=== PATIENT | female | born 1975 | race Caucasian/White ===

== ENCOUNTER 2020-01-12 13:20 | Outpatient (CLI) | payer OTHER ==
--- NOTE | 2020-01-14 09:47 | Mammography Report ---
Reason: ROUTINE MAMMO Procedure Date: 01/12/2020 Accession Number: [id number] / [id number] Procedure: MGN - Screening Mammo w/Vinay CPT Code: Final Report FULL RESULT: EXAM: Screening Mammo w/Vinay DATE: 01/12/2020 1:52 PM CLINICAL HISTORY: Screening encounter. Family history of breast cancer in the mother at the age of 48. TECHNIQUE: (B) - Bilateral CC, laterally exaggerated CC, MLO views were obtained. COMPARISON: 09/22/2018 through 08/25/2015. PARENCHYMAL PATTERN: (D) - The breast(s) demonstrate(s) heterogeneously dense fibroglandular parenchyma. FINDINGS: In the left central breast 4 cm from the nipple on MLO projection is an increasing asymmetry with suggestion of architectural distortion best seen on image 44; is unclear with subtle calcifications are present. The finding is not clearly localized on CC projection with candidate tomographic foci on image 26 at 11:00 and image 29 at 11:00. This requires additional clarification by spot views with magnification and potentially ultrasound. There are no suspicious masses, calcifications, or areas of distortion of the right breast. IMPRESSION: Incomplete examination. BI-RADS category 0. RECOMMENDATION: (ADDMU) - Additional views using both Mammography and Ultrasound recommended. Left breast. BI-RADS CATEGORY: (0) - Incomplete Examination - need additional evaluation. STANDARD QUALIFYING STATEMENTS: 1. This examination was not reviewed with the aid of Computer-Aided Detection (CAD). 2. A negative or benign imaging report should not preclude biopsy if clinically suspicious findings are present. 3. Dense breasts may obscure an underlying neoplasm. 4. This examination was reviewed with the aid of 3D breast imaging (tomosynthesis).
== END 2020-01-12 13:21 | disposition home or self-care (01) ==
LOC: DI.N 13:20
DX: Z12.31 Encounter for screening mammogram for malignant neoplasm of breast (principal); Z80.3 Family history of malignant neoplasm of breast
CPT/HCPCS: 77063; 77067

== ENCOUNTER 2021-01-29 09:34 | Emergency (ER) | payer OTHER ==
[2021-01-29 10:25] LABS: BASOPHILS % (AUTO) 0.6 %; EOSINOPHILS # (AUTO) 0.1 10^3/uL (0.0-0.7); EOSINOPHILS % (AUTO) 0.9 %; HCT - HEMATOCRIT 34.8 % (37.0-47.0); HGB - HEMOGLOBIN 10.4 g/dL (12.0-16.0); LYMPHOCYTES # (AUTO) 2.6 10^3/uL (1.5-3.5); LYMPHOCYTES % (AUTO) 39.3 %; MEAN CORPUSCULAR HEMOGLOBIN 19.1 pg (27.0-31.0); MEAN CORPUSCULAR HGB CONC 29.9 g/dL (32.0-36.0); MEAN PLATELET VOLUME 9.6 fL (7.9-10.8); MONOCYTES # (AUTO) 0.7 10^3/uL (0.0-1.0); MONOCYTES % (AUTO) 10.7 %; NEUTROPHILS # (AUTO) 3.1 10^3/uL (1.5-6.6); NEUTROPHILS % (AUTO) 48.2 %; NRBC ABSOLUTE COUNT (AUTO) 0.02 x10^3/uL; NUCLEATED RED BLOOD CELLS AUTO 0.3 /100WBC; PLT - PLATELET COUNT 388 10^3/uL (130-450); RED BLOOD COUNT 5.44 10^6/uL (4.20-5.40); SLIDE REVIEW? Indicated; WHITE BLOOD COUNT 6.5 x10^3/uL (4.8-10.8)
[2021-01-29 10:37] LABS: ALBUMIN 4.2 g/dL (3.2-5.5); ALBUMIN/GLOBULIN RATIO 1.4 (1.0-2.2); BILIRUBIN,TOTAL 0.7 mg/dL (0.2-1.0); CALCIUM 9.2 mg/dL (8.5-10.3); CREATININE 0.7 mg/dL (0.4-1.0); POTASSIUM 3.7 mmol/L (3.5-5.0); TOTAL PROTEIN 7.1 g/dL (6.7-8.2)
[2021-01-29 10:43] LABS: PLATELET ESTIMATE, MANUAL NORMAL (130-450,000) (NORMAL); PLATELET MORPHOLOGY NORMAL APPEARANCE (NORMAL)
--- NOTE | 2021-01-29 11:06 | ED Physician Documentation ---
PD HPI OPHTHO - Stated complaint Stated Complaint: LT EYE PX - Chief complaint Chief Complaint: Heent - History obtained from History obtained from: Patient - History of Present Illness Timing - onset: Today Timing - duration: Minutes Timing - details: Abrupt onset, Now resolved Location: Left Quality / character: Other (No pain) Associated symptoms: Loss of vision. No: Redness, Swelling, Tearing, Discharge, Matting, FB sensation, Photophobia, Double vision, Decreased vision, Headache Contributing factors: No: Exposed to conjunctivitis, Recent URI Similar symptoms before: Has not had sx before Recently seen: Not recently seen - Additional information Additional information: 45-year-old female with a history of migraines who is on suppression with propr anolol has developed loss of vision in the left eye today without pain and she subsequently had a reina out of the vision and it has returned to normal vision. The episode of eyesight loss lasted about 10minutes and the pride about another 15 minutes. She states she did not develop a headache. She did have some pressure in her face when this was occurring. She has not had ocular migraine previously. She does not have a history of hypertension or diabetes. She states that previously she was having migraines 3 times per week and after starting the suppressive blood pressure medication she is having episodes about once per month around her menses. Review of Systems Constitutional: denies: Fever Eyes: reports: Loss of vision. denies: Discharge, Irritation Ears: denies: Ear pain Nose: denies: Rhinorrhea / runny nose, Congestion Throat: denies: Sore throat Cardiac: denies: Chest pain / pressure, Palpitations Respiratory: denies: Dyspnea, Cough GI: denies: Abdominal Pain, Nausea, Vomiting : denies: Dysuria, Frequency PD PAST MEDICAL HISTORY - Past Medical History Past Medical History: Yes Cardiovascular: High cholesterol Respiratory: None Neuro: Migraines Endocrine/Autoimmune: None GI: GERD PHYSICS TUTOR: None : None HEENT: None Psych: None Musculoskeletal: None Derm: None - Past Surgical History Past Surgical History: Yes General: Cholecystectomy - Present Medications Home Medications: Ambulatory Orders Medication Instructions Recorded Confirmed Butalb/Acetaminophen/Caffeine 1 each PO PRN PRN 01/29/21 01/29/21 [Fioricet 50-300-40 mg Capsule] Cetirizine [ZyrTEC] 10 mg PO DAILY 01/29/21 01/29/21 Fenofibrate 160 mg PO DAILY 01/29/21 01/29/21 Naproxen [EC-Naproxen] 500 mg PO BID PRN 01/29/21 01/29/21 Omeprazole 40 mg PO DAILY 01/29/21 01/29/21 Propranolol ER [Inderal LA] 80 mg PO DAILY 01/29/21 01/29/21 Sumatriptan Succinate [Imitrex] 100 mg PO PRN PRN 01/29/21 01/29/21 - Allergies Allergies/Adverse Reactions: Allergies Allergy/AdvReac Type Severity Reaction Status Date / Time No Known Drug Allergies Allergy Verified 01/29/21 09:42 - Social History Does the pt smoke?: No Smoking Status: Never smoker Does the pt drink ETOH?: No Does the pt have substance abuse?: No - Immunizations Immunizations are current?: Yes - POLST Patient has POLST: No PD ED PE NORMAL - Vitals Vital signs reviewed: Yes (hypertensive ) - General General: Alert and oriented X 3, No acute distress, Well developed/nourished - HEENT HEENT: Atraumatic, PERRL, EOMI, Ears normal - Neck Neck: Supple, no meningeal sign, No bony TTP - Cardiac Cardiac: RRR, No murmur - Respiratory Respiratory: No respiratory distress, Clear bilaterally - Abdomen Abdomen: Soft, Non tender - Back Back: No CVA TTP, No spinal TTP - Derm Derm: Normal color, Warm and dry, No rash - Extremities Extremities: No deformity, No edema - Neuro Neuro: Alert and oriented X 3, design printer balloon 2-12 intact, No motor deficit, No sensory deficit, Normal speech Eye Opening: Spontaneous Motor: Obeys Commands Verbal: Oriented GCS Score: 15 - Psych Psych: Normal mood, Normal affect Results - Vitals Vitals: Vital Signs - 24 hr 01/29/21 09:43 Temperature 36 C L Heart Rate 63 Respiratory 18 Rate Blood Pressure 141/81 H O2 Saturation 96 Oxygen O2 Source Room air - Labs Labs: Laboratory Tests 01/29/21 01/29/21 10:20 10:20 WBC 6.5 RBC 5.44 H Hgb 10.4 L Hct 34.8 L MCV 64.0 L MCH 19.1 L MCHC 29.9 L RDW 18.0 H Plt Count 388 MPV 9.6 Neut # (Auto) 3.1 Lymph # (Auto) 2.6 [place] # (Auto) 0.7 Eos # (Auto) 0.1 Baso # (Auto) 0.0 Absolute Nucleated RBC 0.02 Nucleated RBC % 0.3 Manual Slide Review Indicated Platelet Estimate NORMAL (130-450,000) Platelet Morphology NORMAL APPEARANCE RBC Morph Micro Appear 1+ TARGET CELLS Sodium 138 Potassium 3.7 Chloride 104 Carbon Dioxide 26 Anion Gap 8.0 BUN 16 Creatinine 0.7 Estimated GFR (MDRD) 90 Glucose 110 H Calcium 9.2 Total Bilirubin 0.7 AST 22 ALT 24 Alkaline Phosphatase 36 L Total Protein 7.1 Albumin 4.2 Globulin 2.9 Albumin/Globulin Ratio 1.4 Lipase 33 PD MEDICAL DECISION MAKING - ED course Complexity details: reviewed results, re-evaluated patient, considered differential, d/w patient ED course: 45-year-old female with a history of migraine has developed unilateral vision loss lasting less than 30 minutes with complete recovery. Her history is consistent with a possibility of ocular migraine and I have consulted our finish rolls operator Dr. Castellano who graciously agrees to evaluate the patient this afternoon. She is discharged from the emergency department with normal vision. Departure - Departure Disposition: 01 Home, Self Care Clinical Impression: Ocular migraine Condition: Stable Instructions: ED Headache Migraine Follow-Up: Markel Castellano MD [Provider Admit Priv/Credential] - Comments: Today it appears the most likely explanation for your temporary blindness was a an ocular migraine. I have consulted our finish rolls operator Dr. Castellano in [place] and he would like to examine you today at about 1 PM.
[2021-01-29 11:46] VITALS: BP 146/92
[2021-01-29 12:06] LABS: ESTIMATED AVERAGE GLUCOSE 120 mg/dL (70-100); HEMOGLOBIN A1c% 5.8 % (4.27-6.07)
== END 2021-01-29 11:46 | disposition home or self-care (01) ==
LOC: ED 09:34
DX: G43.B0 Ophthalmoplegic migraine, not intractable (principal); H53.122 Transient visual loss, left eye
CPT/HCPCS: 36415; 80053; 83036; 83690; 85025; 99283; 99284

== ENCOUNTER 2021-07-04 15:33 | Outpatient (CLI) | payer OTHER ==
--- NOTE | 2021-07-04 16:38 | SLEEP CARE CONSULTATION ---
Information from patient questionnaire entered by Quique Ratliff. I have reviewed and concur with the information entered by Quique Ratliff. This document represents the service I personally performed and the decisions made by me, Kiara Rivera ARNP. History of Present Illness Service Date and Time: 07/04/2021 1533 Reason for Visit: New patient Chief Complaint: reports: Unrefreshed sleep, Snoring, Excessive daytime sleepiness, Fatigue, Frequent awakenings at night. denies: Observed pauses in breathing Date of Onset: A few years Usual bedtime: 12-2 AM Time it takes to fall asleep: An hour or more Snores at night: Yes Observed to quit breathing while asleep: No Sleeps alone due to snoring: No Number of times waking at night: 5 or more Reasons for waking at night: reports: Bathroom, Other (Unknown reason). denies: Choking, Gasping for air Toss, Turn, or Twitch while sleeping: Yes Recalls having dreams: No Usually gets out of bed at: 6:15 AM; weekends 0930 Feels refreshed in the morning: No Morning headache: Yes (migraine sufferer; 1 or more times a week) Sleepy or fatigued during the day: Yes Ever fallen asleep while driving: No (no drowsy driving) Takes day naps: Yes (on weekends at least once or twice) Dreams during day naps: Yes Prior sleep studies: No Additional HPI information: I had the pleasure of seeing TINY MOROCHO today regarding the possibility of her having a sleep disorder. Her current complaints are excessive daytime sleepiness, fatigue, frequent night awakenings and insomnia. She states she is only getting 4-5 hours of night. She has trouble falling asleep and has frequent night awakenings that can be 30 minutes to 1 hour at night. She is very restless when sleeping. She has been sleeping on couch to keep from disturbing her . 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 She is working a day shift presently. She did gain weight during the time she was working the production supervisor off shift. She states she snores according to her . He has not heard her choke or gasp in her sleep. He has not witnessed any pauses in breathing. She is very tired when she gets up in the morning and tired throughout the day. She has no family history of sleep disordered breathing. - Parasomnia Symptoms Ever been unable to move upon waking from sleep: No Walks in sleep: No Talks in sleep: No Ever acted out dreams in sleep: No Ever felt weak in the knees when startled or emotional: No Bothered by creepy, crawly, restless sensations in legs: Yes (usually when laying down or when trying to rest in afternoon) Problems with memory or concentration: Yes (forgetful) Subjective Initial [place] Sleepiness Scale score: 13 (in 2020) Past Medical History Past Medical History: reports: Claustrophobia, Diabetes (pre-diabetic), Anemia, Anxiety, GERD, Other (Migraines; cholesterol) Social History 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 Patient is and lives in [place]. Have you smoked in the past 12 months: Yes (e-cig) Alcohol use: No Caffeine use: Yes Caffeine amount and frequency: 8 ounce soda in the morning, daily Family History Family history of sleep disordered breathing: No Allergies and Home Medications Drug allergies reviewed: Yes (NKDA) Home medication list reviewed: Yes Allergy and home medication list: Butalb/Actamin/Caff tabs, as needed Sumatriptan,as needed Naproxen, as needed Propranolol Hcl Omeprazole Fenofibrate Venlafaxine Zyrtec Flonase Multivitamins B-12 Vitamin D Probiotic Review of Systems Weight gain over past 5 years: 30 Weight loss over past 5 years: 40 Cardiovascular: denies: high blood pressure Gastrointestinal: reports: heartburn Urinary: reports: urgency Neurological: reports: headaches Psychiatric: reports: anxiety, claustrophobia Ear/Nose/Throat: reports: nasal congestion, wisdom teeth removed. denies: tonsillectomy Endocrine: reports: sluggishness (tired), too hot or cold, excessive thirst, increased urination Musculoskeletal: reports: muscle pain or cramping Immunologic: reports: sneezing (runny nose), rash, itching, allergies to food or environment Physical Exam Blood Pressure: 123/74 Cuff size: wrist Heart Rate: 69 O2 Saturation: 96 Height: 5 ft 5 in Weight: 227 lb Body Mass Index: 37.8 BMI Classification: Obese Neck circumference: 15.5 (inches) Nostrils: patent to airflow Mouth and throat: narrow oropharynx Soft palate: long Hard palate: normal Uvula: normal Uvula visualization: 50% Mallampati Class II Tongue: normal in size Tonsils: small Neck: normal w/o lymphadenopathy or thyromegaly Heart: regular rate and rhythm Lungs: clear bilaterally Impression and Plan 1. Suspected Obstructive Sleep Apnea-Hypopnea Syndrome, as suggested by a history of loud and irregular snoring, morning headache, frequent awakening during the night, unrefreshed sleep, cognitive impairment, and excessive daytime sleepiness. Narrow oropharynx and obesity are common predisposing factors for obstructive sleep apnea-hypopnea syndrome. I recommend proceeding to polysomnography to confirm the diagnosis and to assess severity. If the patient has significant sleep disordered breathing, a manual CPAP titration study will also be performed to find the optimal treatment pressure. I informed the patient of what the sleep studies involve and after some discussion, obtained agreement to proceed. The pathophysiology of obstructive sleep apnea-hypopnea syndrome was discussed with the patient and health risks of cardiovascular and cerebrovascular disease if not treated. AAS brochure for obstructive sleep apnea-hypopnea syndrome given and reviewed. Risks of drowsy driving discussed in detail and patient advised to avoid long distance driving and to pan puller at the first sign of drowsiness. Patient agreed to plan. * Schedule polysomnography +- manual CPAP titration study and return in 1-2 weeks after the study to discuss result and initiate therapy. * Avoid long distance driving or driving when feeling sleepy. * Avoid alcohol, sedative and muscle relaxant around bedtime. * Attempt to lose weight. * Review instructions provided by trained office staff on how to prepare for the sleep study. * Return for follow-up after sleep study completed. Counseling Topics: Weight loss health impact Visit Type: In Office Time Spent with Patient (minutes): 32 Provider Statement: I spent 100% of the Face to Face Visit with the patient with greater than 50% spent counseling the patient and coordination of care.
[2021-07-04 16:39] VITALS: BP 123/74
== END 2021-07-04 15:34 | disposition home or self-care (01) ==
LOC: SC 15:33
PROVIDERS: ATTEND Nurse Practitioner Family
DX: G47.10 Hypersomnia, unspecified (principal); R51.9 Headache, unspecified; R06.83 Snoring; R41.89 Other symptoms and signs involving cognitive functions and awareness; E66.9 Obesity, unspecified; Z68.37 Body mass index [BMI] 37.0-37.9, adult
CPT/HCPCS: 99203; 99212

== ENCOUNTER 2021-07-11 14:48 | Outpatient (CLI) | payer OTHER | END 2021-07-11 14:49 | disposition home or self-care (01) | LOC: SC 14:48 | PROVIDERS: ATTEND Nurse Practitioner Family | DX: G47.33 Obstructive sleep apnea (adult) (pediatric) (principal); R09.02 Hypoxemia | CPT/HCPCS: 95806 ==

== ENCOUNTER 2021-07-31 15:45 | Outpatient (CLI) | payer OTHER ==
--- NOTE | 2021-07-31 16:22 | SLEEP CARE CONSULTATION ---
Information from patient questionnaire entered by Quique Ratliff. I have reviewed and concur with the information entered by Quique Ratliff. This document represents the service I personally performed and the decisions made by me, Kiara Rivera ARNP. History of Present Illness Service Date and Time: 07/31/2021 1545 Initial [place] Sleepiness Scale score: 13 (in 2020) Current [place] Sleepiness Scale score: 11 Additional HPI information: TINY MOROCHO returns for follow up and results of the recently performed home sleep study. I explained the pathophysiology behind obstructive sleep apnea. We then spent quite a bit of time discussing different treatment options. For mild obstructive sleep apnea, surgery and oral appliance are alternatives to nasal CPAP therapy but in moderate or severe cases, nasal CPAP is the most effective and reliable treatment. Because apnea is primarily in supine position, then positional management therapy could be effective. Methods discussed such as positioning with pillows, using a T-shirt with tennis balls in the back, and shown commercial products that have a pillow format on back to prevent supine sleep. I reviewed the impact of weight changes on sleep apnea and strongly recommended losing weight. After some discussion, the patient opted to go with the nasal CPAP therapy. Nasal autoCPAP set at 4-15 cmH20 will be ordered with rationale explained. A manual titration study will be ordered if unable to find optimal pressure with office adjustments. I explained how CPAP machine works with sample devices Respironics Dreamstation and ResEatwave [id number] and what to expect when using the machine. Using CPAP every night in order to get used to it was emphasized. Patient advised to put CPAP mask on before getting into bed so as not to fall asleep without CPAP. To assist acclimation to CPAP use, it could also be used for a short time during day while reading or watching TV. The patient was instructed to call the CPAP supplier to discuss any mechanical problem that may occur. If the mask given is uncomfortable or is difficult to keep on through the night even with adjustment, contact the CPAP supplier as many will replace with another mask style if notified before 30 days. If snoring or perceives is not getting enough air or too much air from the machine, notify this office. [facility] patient education PAP tips reviewed and given to patient. Patient was cautioned about risks of drowsy driving until sleepiness symptoms resolve. Sleep Study - Results Type of Sleep Study: Home sleep study Prior sleep studies: No Polysomnography/Home Sleep Study results: Physician Impression: The quality of the study is good. The length of the study is adequate (> 240 minutes). Please also see the tabulated and graphic data. 1. Obstructive Sleep Apnea-Hypopnea (ICD-10 G47.33), mild, with an AHI of 5.5/hr and jorge l SaO2 of 85%. During the study, the patient had 9 apneas (9 obstructive, 0 central, 0 mixed) and 18 hypopneas. The longest episode lasted 54.5 seconds. The respiratory events occurred slightly more frequently during supine sleep (supine AHI was 7.0 and non-supine, 5.28). 2. Hypoxemia (ICD-10 R09.02), minimal, with the lowest oxygen saturation of 85 % and 0.9 minutes with SaO2 under 90%. Baseline oxygen saturation was normal (Average oxygen saturation was 94%). Allergies and Home Medications Home medication list reviewed: Yes (no changes) Review of Systems Review of systems same as previous: Yes (no changes) Physical Exam Heart Rate: 68 O2 Saturation: 97 Height: 5 ft 5 in Weight: 226 lb Body Mass Index: 37.5 BMI Classification: Obese Impression and Plan 1. Obstructive Sleep Apnea-Hypopnea Syndrome, mild, with lowest oxygen saturation of 85%. Obviously this is the cause of the patients symptoms of unrefreshed sleep, and excessive daytime sleepiness. Positive pressure therapy could benefit pre-diabetes, anxiety, gastric reflux and migraines. As mentioned above, the patient will be started on nasal autoCPAP therapy with pressure set at 4-15 cmH2O. A manual titration study will be completed if unable to find o ptimal treatment pressure with office adjustments. Compliance guidelines also reviewed. A copy of compliance guidelines will be given for reference at check out. Because the apnea is more severe supine, I instructed to avoid sleeping supine using pillow positioning until able to start CPAP use. 2. Hypoxemia, minimal, with the lowest oxygen saturation of 85 % and 0.9 minutes with SaO2 under 90%. Her baseline oxygen saturation was normal with an average oxygen saturation of 94%. * Nasal auto CPAP therapy, pressure at 4-15 cm H2O. * Attempt to lose weight. * Avoid alcohol consumption near bedtime. * Avoid supine sleep until using CPAP. * The patient is again cautioned about driving until sleepiness completely resolves. * Return one month after CPAP obtained. I will assess response to therapy and compliance at that time. Counseling Topics: Weight loss health impact Visit Type: In Office Time Spent with Patient (minutes): 20 Provider Statement: I spent 100% of the Face to Face Visit with the patient with greater than 50% spent counseling the patient and coordination of care.
== END 2021-07-31 15:46 | disposition home or self-care (01) ==
LOC: SC 15:45
PROVIDERS: ATTEND Nurse Practitioner Family
DX: G47.33 Obstructive sleep apnea (adult) (pediatric) (principal); R09.02 Hypoxemia; E66.9 Obesity, unspecified; Z68.37 Body mass index [BMI] 37.0-37.9, adult
CPT/HCPCS: 99212; 99213

== ENCOUNTER 2021-11-08 12:58 | Outpatient (CLI) | payer OTHER ==
--- NOTE | 2021-11-12 13:21 | Mammography Report ---
BILATERAL DIGITAL SCREENING MAMMOGRAM 3D/2D: 11/08/2021 CLINICAL: Family history of breast cancer. Routine screening. Comparison is made to exams dated: 06/20/2020 ultrasound, 06/20/2020 mammogram, 01/12/2020 mammogram - [facility], 09/22/2018 mammogram, 08/05/2016 ultrasound - [facility], and 08/25/2015 mammogram - [facility]. The tissue of both breasts is heterogeneous ly dense. This may lower the sensitivity of mammography. No significant masses, calcifications, or other findings are seen in either breast. There has been no significant interval change. IMPRESSION: NEGATIVE There is no mammographic evidence of malignancy. A 1 year screening mammogram is recommended. This exam was interpreted at Station ID: [id number]. NOTE: For mammograms, a report in lay terms will be sent to the patient. Approximately 15% of breast malignancies will not be visualized mammographically. In the management of a palpable breast mass, a negative mammogram must not discourage biopsy of a clinically suspicious lesion. Electronically Signed By: Perez Lawton M.D., jr/daren:11/08/2021 13:48:44 ACR BI-RADS Category 1: Negative 3341F PARENCHYMAL PATTERN: (D) - The breast(s) demonstrate(s) heterogeneously dense fibroglandular norma dodge. BI-RADS CATEGORY: (1) - 1 RECOMMENDATION: (ANNUAL) - Recommend routine annual screening mammography. [id number] 1 year screening LATERALITY: (B)
== END 2021-11-08 12:59 | disposition home or self-care (01) ==
LOC: DI.N 12:58
PROVIDERS: ATTEND Family Medicine
DX: Z12.31 Encounter for screening mammogram for malignant neoplasm of breast (principal); Z80.3 Family history of malignant neoplasm of breast

== ENCOUNTER 2023-01-08 15:00 | Outpatient (CLI) | payer OTHER ==
--- NOTE | 2023-01-09 17:01 | Mammography Report ---
BILATERAL DIGITAL SCREENING MAMMOGRAM 3D/2D: 01/08/2023 CLINICAL: Family history of breast cancer. Routine screening. Comparison is made to exams dated: 11/08/2021 mammogram, 06/20/2020 ultrasound, 06/20/2020 mammogram, 01/12/2020 mammogram - [facility], 09/22/2018 mammogram, and 08/05/2016 ultrasound - [facility]. Both breasts are heterogeneously dense, which may obscure small masses (category c / 51-75% glandular tissue). No significant masses, calcifications, or other findings are seen in either breast. There has been no significant interval change. IMPRESSION: NEGATIVE There is no mammographic evidence of malignancy. A 1 year screening mammogram is recommended. Based on Tyrer-Cuzick model (a risk assessment model), the patient's lifetime risk is 27.2% and her 1 0 year risk is 6.3%. If a patient has an elevated risk, a more comprehensive evaluation should be con sidered and/or a referral to a genetic counselor. The [employer], [employer], and NCCN Guidelines advise the consideration of Breast MRI as an adjunct to screening mammog darrion in patients whose "Lifetime risk to develop breast cancer" is 20% or higher. This exam was interpreted at Station ID: [id number]. NOTE: For mammograms, a report in lay terms will be sent to the patient. Approximately 15% of breast malignancies will not be visualized mammographically. In the management of a palpable breast mass, a negative mammogram must not discourage biopsy of a clinically suspicious lesion. Electronically Signed By: Jose marrero/daren:01/09/2023 08:47:27 letter sent: No_Letter ACR BI-RADS Category 1: Negative 3341F PARENCHYMAL PATTERN: (D) - The breast(s) demonstrate(s) heterogeneously dense fibroglandular norma dodge. BI-RADS CATEGORY: (1) - 1 Mammogram [id number] 1 year screening LATERALITY: (B)
== END 2023-01-08 15:01 | disposition home or self-care (01) ==
LOC: DI.N 15:00
DX: Z12.31 Encounter for screening mammogram for malignant neoplasm of breast (principal); Z80.3 Family history of malignant neoplasm of breast